=== PATIENT | female | born 2000 | race Caucasian/White ===

== ENCOUNTER 2023-06-19 08:00 | Outpatient (RCR) | payer SELFPAY, OTHER ==
--- NOTE | 2023-04-07 09:31 | HP.PTEVAL_ITS ---
Patient's Visit Information Visit Information Visit Information: GOMEZ HOUSTON is a 23 year old F referred to Physical Therapy by [facility] with a diagnosis of PELVIC PAIN, LOW BACK PAIN, MUSCLE DYSFUNCTION. Date of Evaluation: 04/07/23 Physical Therapist: Lilly Canchola PT, Cert MDT Visit Plan Frequency: 2-3x /Week Duration: 2-4 Weeks Plan: Begin with Neutral Spine Core Strength and Stability Exercise next visit and HS Stretching to help reduce stress on Lumbar Spine with Daily Activities. Also instruct in Proper Posture Control, Body Mechanics, and Appropriate Activity Modifications. Explore Kacie's Extension Principle of Treatment Visit 3 as appropriate. HEP Instruction. Subjective Subjective: Work/Leisure: DOES SEWING, LAUNDRY, KONST[place]IN, SOME YARDWORK, HOUSEWORK. Present symptoms: BACKACHE AND HEADACHE. MAINLY LOWER BACK PAIN BUT PAIN ALL THE WAY UP BACK. PATIENT DENIES ASHIA UE AND LE PAIN, NUMBNESS AND TINGLING EXCEPT SOME MILD TINGLING IN THE L HAND AT NIGHT SINCE SURGERY. PATIENT REPORTS HER MAIN COMPLAINT IS LOW BACK PAIN AND SHE THINKS HER OTHER PAIN STEMS FROM THAT. SHE STATES SHE THINKS IF HER LOW BACK PAIN WOULD GET BETTER EVERYTHING ELSE WOULD FEEL BETTER. Present since: SPRING 2022 BACK AND HEADACHES GOT WORSE. SOME BACK PAIN LIMITING ACTIVITIES LIKE HOEING IN THE GARDEN FOR ABOUT 2-3 YEARS. Pain Scale: WORST 7/10, LEAST 3/10 Currently: 5/10 Is it getting better, worse or staying the same: GETTING WORSE Commenced as a result of: NO APPARENT REASON Symptoms at onset: LOW BACK PAIN Worse: TOO MUCH STANDING, HOEING IN THE GARDEN, SITTING ON A HARD CHAIR, WORSE SINCE SURGERY, MOPPING, DURING MENSTRATION. Better: IBUPROFEN Disturbed sleep: YES Previous history/Previous treatment: CHIROPRACTIC - LAST TREATMENT WAS SEPTEMBER 2022 - HELPED A LITTLE BIT TEMPORARILY, MASSAGE BY WITH SOME TEMPORARY BENEFIT. NO BACK SURGERY. NO BACK INJECTIONS. Treatment this episode: SURGERY FOR endometriosis 01/15/23. Coughing/sneezing/straining: NEGATIVE FOR BACK PAIN AND UI Gait: INCREASED BACK PAIN IF TOO LONG ON FEET. UI: NO Bowel Incontinence: NO Accidents: NO Unexplained weight loss: NO Imaging: PATIENT AND PATIENTS DO NOT RE-CALL PATIENT EVER HAVING ANY BACK X-RAYS PMH/Recent major surgery: UNREMARKABLE Objective Objective: Sitting/Standing Posture: POOR. VERY SLOUCHED IN SITTING AND NEEDS A LOT OF CUEING TO CORRECT. FH. RSH'S. NORMAL LORDOSIS. Other Observations: INDEP GAIT AND TRANSFERS. Sensory deficit: ASHIA LE LIGHT TOUCH SENSATION GROSSLY INTACT AND SYMMETRICAL ROM deficit: ASHIA LE HS'S TIGHTNESS Motor deficit: ASHIA LE'S 5/5 EXCEPT HIPS 4/5. Reflexes: 2/3. Dural Signs: NEGATIVE ASHIA LE'S. Lumbar mvmt loss: flex - NIL - INCREASES LB - W ext - MOD - INCREASES - W R SG - MIN - NE L SG - MIN - NE PATIENT C/O INCREASED ASHIA LBP WITH LUMBAR FLEX AND EXTENSION TESTING EXT > FLEX. REP EIL - INCREASES - W. Core strength: POOR Palpation: NO ACUTE LUMBOSACRAL, THORACIC OR NECK TENDERNESS. FUNCTIONAL SCREEN: Incontinence Impact Questionnaire Score: 0 Urogenital Distress Inventory Score: 0 Other: TRIAL OF USE OF LUMBAR SUPPORT IN SITTING IN CLINIC TODAY AND PATIENT RESPONDED WELL. RECOMMENDED PATIENT TRIAL AT HOME TOO TOLERATED. Balance/Special Test Scores Oswestry Low Back Score: 11 Goals Goal 1:: DECREASE C/O PAIN BY AT LEAST 25% TO EASE ADL'S. Goal Time Frame: 4-6 Weeks Goal 2:: IMPROVE OSWESTRY SCORE BY 5 POINTS TO SHOW IMPROVED FUNCTION. Goal Time Frame: 4-6 Weeks Goal 3:: PATIENT WILL BE INDEP WITH A HEP FOR CONTINUED IMPROVEMENT ONCE FORMAL PHYSICAL THERAPY CONCLUDES. Goal Time Frame: 4-6 Weeks Rehabilitation Potential Physical Therapy Diagnosis: LOW BACK PAIN, STIFFNESS AND CORE WEAKNESS. POOR POSTURE CONTROL. DECREASED KNOWLEDGE OF PROPER POSTURE CONTROL AND BODY MECHANI CS. Rehabilitation Potential: Good Anticipated Interventions Patient/Client Instruction: Educate patient on: Condition, Plan of Care and Risk Factors For the Purpose of:: To improve self management Therapeutic Exercise to Include: Strength training, Body mechanics, Postural tra ining, Flexibilty training, Neuromotor development and Dynamic Lumbar Stabilization For the Purpose of:: To decrease pain, To increase ROM, To improve muscle performance and motor function, To increase tolerance to activity/condition/position and To improve ability of physical actions for home/community/work/leisure Text: Thank you for the opportunity to evaluate your patient. For Medicare and Medicare HMO plans, please review the plan of care and approve it. It will need to be FAXED BACK to us at [phone] for Medicare purposes. For Medicare only, by signing this I certify the plan of care. Please let me know if there are questions or concerns regarding this plan of care. Physician Signature:_ Date:
--- NOTE | 2023-06-19 08:58 | HP.PTDCSUM ---
Discharge Summary D/C summary: It has been my pleasure to treat GOMEZ HOUSTON referred by [facility], with the diagnosis of PELVIC PAIN, LOW BACK PAIN, MUSCLE DYSFUNCTION for a total of 14 visit(s). Discharge Date: 06/19/23 Please see the following information for a summary of their discharge status. Subjective Subjective: I FEEL LIKE MY WALKS ARE HELPING. SHE REPORTS SHE FEELS LIKE OVER TIME THEY MIGHT HELP HER GET BACK TO NORMAL. SHE STATES SHE HAD A PHONE FOLLOW UP ANIBAL'T WITH HER SURGEON AND HE DID NOT HAVE ANY CONCERNS AND RECOMMENDED SHE CONTINUE HER EXERCISES. NO FURTHER FOLLOW UP SCHEDULED UNLESS NEEDED. PATIENT STATES SHE FEELS READY FOR DISCHARGE TO [facility] EX. CURRENTLY HER LOW BACK PAIN IS RANGING FROM 0/10 IN BED TO 2-4/10 ONCE OUT OF BED DURING THE DAY EXCEPT WHEN DOING PRESS-UPS WHICH HELPS THE PAIN GO AWAY TEMPORARILY. Pain Back: Pain Intensity (Out of 10): 2 Overall Improvement % Improvement: 85 Objective Objective/Function: PATIENT WAS SEEN TODAY FOR RE-ASSESSMENT OF PROGRESS TOWARD THE SET PT GOALS AND THE NEED FOR FURTHER PHYSICAL THERAPY VS READINESS FOR DISCHARGE IN ADDITION TO ABOVE TREATMENT. ALL GOALS HAVE BEEN MET AND PATIENT IS APPROPRIATE FOR AND AGREEABLE TO DISCHARGE. UPON EXAM TODAY: ASHIA LE STRENGTH IS 5/5 AND ASHIA LE DURAL SIGNS ARE NEGATIVE. Lumbar mvmt loss: flex - NIL ext - MIN R SG - NIL L SG - NIL PATIENT DENIES INCREASED PAIN WITH ANY TESTING TODAY. REP EIL - GOOD MECHANICAL RESPONSE. Goals Goal 1:: DECREASE C/O PAIN BY AT LEAST 25% TO EASE ADL'S. Goal Progress: Goal Met Goal 2:: IMPROVE OSWESTRY SCORE BY 5 POINTS TO SHOW IMPROVED FUNCTION. Goal Progress: Goal Met Goal 3:: PATIENT WILL BE IN[facility] WITH A HEP FOR CONTINUED IMPROVEMENT ONCE FORMAL PHYSICAL THERAPY CONCLUDES. Goal Progress: Goal Met Plan Plan: D/C TO [facility] EX. D/C Information Discharge Comments: THIS PATIENT HAS BEEN PLEASANT AND COOPERATIVE TO WORK WITH AND APPEARS TO HAVE BEEN VERY COMPLIANT WITH INSTRUCTIONS GIVEN. d/c sentence: If there are questions or concerns regarding this patient's physical therapy, please feel free to call me at [phone]. Thank you for the referral of this patient. Sincerely, Lilly Canchola, PT, Cert MDT Balance/Gait/Functional tests Balance/Special Test Scores Oswestry Low Back Score: 5 Improvement % Improvement: 85
== END 2023-06-19 19:00 | disposition home or self-care (01) ==
LOC: PT 08:00
DX: R10.2 Pelvic and perineal pain (principal); M54.50 Low back pain, unspecified; M62.9 Disorder of muscle, unspecified
CPT/HCPCS: 97110; 97162; 97530